=== PATIENT | female | born 1990 | race Caucasian/White ===

== ENCOUNTER → 2020-04-01 | Outpatient (CLI) | payer BC ==
--- NOTE | 2020-04-01 13:46 | XR ---
EXAMINATION TYPE: XR ankle complete RT DATE OF EXAM: 04/01/2020 COMPARISON: NONE HISTORY: Pain TECHNIQUE: Frontal, lateral and oblique images of the right ankle are obtained. COMPARISON: None. FINDINGS: There is no acute fracture/dislocation evident. The joint spaces appear within normal lyn its. The overlying soft tissue appears unremarkable. IMPRESSION: There is no acute fracture or dislocation seen.
--- NOTE | 2020-04-01 13:47 | XR ---
EXAMINATION TYPE: XR foot complete RT DATE OF EXAM: 04/01/2020 CLINICAL HISTORY: pain TECHNIQUE: Frontal, lateral and oblique images of the right foot are obtained. COMPARISON: None. FINDINGS: There is no acute fracture/dislocation evident. The joint spaces appear within normal lyn its. The overlying soft tissue appears unremarkable. IMPRESSION: There is no acute fracture or dislocation. ICD 10 NO FRACTURE, INITIAL EVALUATION
== END | disposition home or self-care (01) ==
LOC: RADXRMAIN 13:23
PROVIDERS: ATTEND Family Medicine
DX: M79.671 Pain in right foot (principal); M76.61 Achilles tendinitis, right leg

== ENCOUNTER 2020-08-15 07:32 | Day surgery (SDC) | payer BC ==
[2020-08-11 09:13] VITALS: BMI 38.2
--- NOTE | 2020-08-11 14:35 | HP ---
HISTORY AND PHYSICAL CHIEF COMPLAINT: Menorrhagia. HISTORY OF PRESENT ILLNESS: This is a 29-year-old, 0, who presents for evaluation of having menstrual periods. She states her flow has been intermittently heavy over the last 6 months. Periods are regular every 28 days, lasting 7 days, heavy with clots and significant dysmenorrhea. Patient states she feels pretty heavy for about 4 days out of each period. She has tried an OCP without relief of symptoms. She is in a lesbian relationship and does not desire . She has been for 3 years. She did have a recent negative Pap with her primary care. PAST MEDICAL HISTORY: Significant for obesity and menorrhagia. PAST SURGICAL HISTORY: Cholecystectomy. MEDICATIONS: She is on a control pill since April of 2020. ALLERGIES: Allergic to SULFA. FAMILY MEDICAL HISTORY: Noncontributory. REPRODUCTIVE HISTORY: She had menarche at age 10. Menstrual cycles are noted to be regular as stated above, every 28 days with a 7 day flow, 4 of which are heavy with significant dysmenorrhea. Patient is currently using control pills for cycle regulation, which is not working. SOCIAL HISTORY: She is for the last 3 years to her . She is a former smoker but not currently and she denies drug abuse. REVIEW OF SYSTEMS: CONSTITUTIONAL: She denies night sweats, fevers or chills. She denies any breast pain, lumps, or swelling. She denies shortness of breath, wheezing, or cough. She denies nausea, vomiting, diarrhea, constipation. She notes heavy painful menstrual cycles, but denies urinary urgency, frequency, or dysuria. PHYSICAL EXAM: Vital signs, she is noted to have stable vital signs. She is a well-nourished, well-developed, non female in no acute distress, breathing is noted to be nonlabored, heart has a regular rate and rhythm. Abdomen is soft and nontender. On genitourinary, external genitalia is noted to be normal for age, the vaginal mucosa is noted to be pink and well rugated. Her cervix is noted to be without lesion, her uterus is midline and mobile. No adnexal masses are appreciated. ASSESSMENT: 1. Heavy menstrual bleeding, dysmenorrhea, polycystic ovarian syndrome. 2. We did discuss endometrial ablation as a means to cease her menstrual cycles. She was given a pamphlet and desires this treatment option. Surgery is reviewed. Risks including uterine perforation, endometrial failure of the procedure are discussed. The patient is understanding. All questions were answered and she wishes to proceed with hysteroscopy, dilation and curettage and endometrial ablation with NovaSure. MMODL / IJN: [id number] /
[~2020-08-15 07:32] MED LIST: DEXAMETHASONE SOD PHOSPHATE 4 MG/ML 1 ML VIAL IV ONE; LACTATED RINGERS 1,000 ML IV SCH; LIDOCAINE 1% (10MG/ML) FOR IV START INTRADERMA PRN; ONDANSETRON 4 MG/2 ML VIAL IVP ONE; Pre Op ABX Message 1 EACH MISC MISCELLANE ONE; SCOPOLAMINE 1.5MG/72HR PATCH TRANSDERM ONE
[2020-08-15] MEDS ORDERED: LACTATED RINGERS 1,000 ML IV ONE (08:45)
[2020-08-15] MEDS ORDERED: MIDAZOLAM 2 MG/2 ML VIAL ONE (09:14)
[2020-08-15] MEDS ORDERED: fentaNYL (PF) 50 MCG/ML 2 ML AMP ONE (09:14)
[2020-08-15] MEDS ORDERED: KETOROLAC 15 MG/ML 1 ML VIAL ONE (09:14)
[2020-08-15] MEDS ORDERED: LIDOCAINE 1% INJ 10MG/ML (20 ML MDV) ONE (09:14)
[2020-08-15] MEDS ORDERED: PROPOFOL 10 MG/ML 20 ML VIAL IV ONE (09:14)
--- NOTE | 2020-08-15 09:39 | P.OP ---
Date of Procedure: 08/15/20 Preoperative Diagnosis: Menorrhagia, pcos Postoperative Diagnosis: Same Procedure(s) Performed: Hysteroscopy, dilation and curettage, endometrial ablation with NovaSure Anesthesia: MAC Surgeon: Codi Carey Estimated Blood Loss (ml): 5 IV fluids (ml): 300 Urine output (ml): 50 Pathology: other (Endometrial curetting) Condition: stable Disposition: PACU Indications for Procedure: Heavy menstrual bleeding, known polycystic ovarian syndrome Operative Findings: Proliferative endometrium with polyps Description of Procedure: Patient was seen in the preoperative area procedure was reviewed and all questions were answered. Patient states understanding and wishes to proceed. Patient was taken back to the operating room where general anesthesia was obtained without difficulty by the anesthesia department. She was then prepped and draped in the normal sterile fashion in the dorsal lithotomy position. A red rubber catheter was then used to drain the bladder of clear yellow urine. A weighted speculum posterior vaginal vault the anterior lip of the cervix was visualized and grasped with single-tooth tenaculum. The endocervical canal was then dilated to 15-[place]oz[place], a hysteroscope was then performed. The hysteroscope was placed through the cervix and toward the intracavity a proliferative cavity with multiple polyps was noted. She's were taken and the hysteroscope was removed. A sharp curettage was then performed. A uterine sound was then used to measure the total length of the uterus was noted to be 9 after subtraction of the cervix length of 5 width of 3.0 was noted for the procedure. The NovaSure was opened and after cavity assessment was passed successfully cycle was allowed to complete. After the cycle was complete the device was removed without difficulty. Device was used for a total of 58 seconds and a power of 83. The single-tooth tenaculum was taken off of the anterior lip of the cervix and hemostasis was appreciated. All instruments removed from the patient's vaginal vault. All counts are correct 2 and the procedure. Patient tolerated procedure well and was taken the recovery room awake in stable condition.
[2020-08-15 09:51] VITALS: TEMP 97.6
[2020-08-15] MEDS: HYDROmorphone 0.5 MG/0.5 ML SYRINGE IVP PRN ×2 (09:51→09:56)
[2020-08-15] MEDS: HYDROmorphone 1 MG/ML 1 ML SYRINGE IVP ONE ×2 (10:03→10:08)
[2020-08-15] MEDS ORDERED: ONDANSETRON 4 MG/2 ML VIAL IVP ONE (10:08)
[2020-08-15] MEDS ORDERED: fentaNYL (PF) 50 MCG/ML 2 ML AMP IV ONE ×2 (10:15)
[2020-08-15 11:07] VITALS: RESP 16
[2020-08-15] MEDS ORDERED: IBUPROFEN 200 MG TAB PO ONE (11:15)
[2020-08-15 11:16] VITALS: BP 129/81; PULSE 71
== END 2020-08-15 11:40 | disposition home or self-care (01) ==
LOC: OR 07:32
PROVIDERS: ATTEND Obstetrics & Gynecology Obstetrics
DX: E28.2 Polycystic ovarian syndrome (principal); N92.0 Excessive and frequent menstruation with regular cycle; N94.6 Dysmenorrhea, unspecified; E66.01 Morbid (severe) obesity due to excess calories; Z68.38 Body mass index [BMI] 38.0-38.9, adult; Z90.49 Acquired absence of other specified parts of digestive tract; Z79.3 Long term (current) use of hormonal contraceptives; Z88.2 Allergy status to sulfonamides
CPT/HCPCS: 81025; 88305; 58563; J2250; J2405; J2001; J3010; J1170 ×2; J1885; J2704

== ENCOUNTER → 2022-10-24 | Outpatient (CLI) | payer BC ==
--- NOTE | 2022-10-24 14:15 | XR ---
EXAMINATION TYPE: XR shoulder complete LT DATE OF EXAM: 10/24/2022 1:56 PM INDICATION: Patient age:Female; 32 years old; Reason for study: M25.512 PAIN IN LEFT SHOULDER; COMPARISON: None TECHNIQUE: The left shoulder was examined in AP, internally rotated and scapular Y projections. . FINDINGS: No evidence of acute osseous pathology, joint dislocation, or soft tissue swelling. The remaining por tions of the visualized chest are unremarkable. IMPRESSION: No acute osseous pathology.
== END | disposition home or self-care (01) ==
LOC: RADXRWHC 13:41
PROVIDERS: ATTEND Nurse Practitioner Family
DX: M25.512 Pain in left shoulder (principal)

== ENCOUNTER → 2024-10-19 | Outpatient (CLI) | payer BC ==
--- NOTE | 2024-10-19 16:49 | XR ---
EXAMINATION TYPE: XR finger RT DATE OF EXAM: 10/19/2024 4:21 PM INDICATION: Patient age:Female; 34 years old; Reason for study: S63.601A UNSPECIFIED SPRAIN OF RIGHT THUMB, INITIAL; PH[facility]. pain COMPARISON: None TECHNIQUE: Frontal, lateral and oblique views of the first digit of the right hand were obtained. FINDINGS: Normal alignment of the visualized joints. No acute osseous pathology is identified. No e vidence of soft tissue swelling. IMPRESSION: No acute osseous pathology. [facility], , 10/19/2024 4:47 PM
== END | disposition home or self-care (01) ==
LOC: RADXRMAIN 16:03
PROVIDERS: ATTEND Family Medicine
DX: S63.601A Unspecified sprain of right thumb, initial encounter (principal)

== ENCOUNTER → 2025-04-19 | Outpatient (CLI) | payer BC ==
--- NOTE | 2025-04-19 10:57 | XR ---
EXAMINATION TYPE: XR knee limited RT DATE OF EXAM: 04/19/2025 10:40 AM COMPARISON: None CLINICAL INDICATION: Female, 34 years old with history of M25.561 Pain rt knee; PH[facility], pain TECHNIQUE: XR knee limited RT 3 views submitted. FINDINGS: No evidence of any acute osseous pathology or soft tissue swelling. There may be small attila int effusion. Minimal degeneration with joint space narrowing and osteophytes. IMPRESSION: 1. No acute osseous pathology. 2. Minimal degeneration with small joint effusion. Consider further evaluation with MRI as clinically warranted.. [facility], , 04/19/2025 10:55 AM
--- NOTE | 2025-04-19 10:58 | XR ---
EXAMINATION TYPE: XR lumbar spine 2 or 3V DATE OF EXAM: 04/19/2025 10:40 AM COMPARISON: 09/18/2017. CLINICAL INDICATION: Female, 34 years old with history of M54.50 Low back pain, pain TECHNIQUE: XR lumbar spine 2 or 3V - Frontal, lateral and coned in L5-S1 lateral views of the spine. FINDINGS: No evidence of any acute osseous pathology. No evidence of loss of vertebral body height i s seen. There is normal alignment of the lumbar vertebral bodies. Minimal osteophyte formation change s along these vertebral bodies with mild facet arthropathy. Right abdomen surgical clip in right uppe r abdomen surgical clips. IMPRESSION: 1. No acute fracture. 2. Minimal multilevel disc degeneration. [facility], , 04/19/2025 10:56 AM
== END | disposition home or self-care (01) ==
LOC: RADXRMAIN 10:23
PROVIDERS: ATTEND Family Medicine
DX: M51.360 Other intervertebral disc degeneration, lumbar region with discogenic back pain only (principal); M17.11 Unilateral primary osteoarthritis, right knee
CPT/HCPCS: 72100